=== PATIENT | male | born 1970 | race Caucasian/White ===

== ENCOUNTER 2017-01-25 02:44 | Observation (INO) | payer SELFPAY ==
[~2017-01-25] VITALS: Ht 172.7 cm; Wt 67.6 kg
--- NOTE | ~2017-01-25 | EC ---
PATIENT:SKYE WOODS DATE OF SERVICE: 01/25/17 SEX: M MEDICAL RECORD: [id number] DATE OF : 70 LOCATION:D. D.212 AGE OF PATIENT: 46 ADMISSION DATE: 01/25/17 REFERRING PHYSICIAN: INTERPRETING PHYSICIAN: MAYUR ANN MD ECHOCARDIOGRAM REPORT ECHO CHARGES 4 ECHO COMPLETE CLINICAL DIAGNOSIS: PALPITATIONS ECHOCARDIOGRAPHIC MEASUREMENTS (adult normal given) AC root (d.<3.7cm) 3.4 LV Septum d (<1.2 cm> 1.4 Valve Excursion 1.7 LV Septum (systole) 1.7 Left Atria (s.<4.0cm> 3.3 LVPW d(<1.2cm) 1.4 RV (d.<2.3cm) 4.5 LVPW (sytole) 1.7 LV diastole(<5.6CM) 4.8 MV E-F(>70mm/sec) LV systole 3.1 LVOT Diameter 1.7 MV exc.(>10mm) 2.7 Est.ejection fraction (50-75%) Pericardial Effusion N DOPPLER: LVIT A 55.0 E 89.0 LA RVSP 30 LVOT 95 AOP1/2T Asc. Ao 124 RVOT 57 RA PA 93 AV Gradient Peak 6.16 AV Mean 3.26 AV Area 1.9 MV Gradient Peak 3.17 MV Mean 0.86 MV Area COMMENTS: PA 93 CM/SEC OR 3.46 MMHG RVSP 30 MMHG Lime Spreader: 2 KRISTIE RIGGS Auditing Specialist:10 Dr. Goodman TAPE# PACS TWO-DIMENSIONAL ECHOCARDIOGRAM WITH DOPPLER 1. Left ventricular chamber size is within normal limits. Left ventricular systolic function is normal. Overall ejection fraction is estimated at 55 percent. 2. Left atrium, right atrium, and right ventricular chamber sizes are within normal limits. 3. Valvular structures have normal structure and motion. 4. Doppler interrogation reveals mild tricuspid regurgitation; no other valvular insufficiency or stenosis. 5. No evidence of pericardial effusion or left ventricular thrombus. ECHOCARDIOGRAM REPORT [id number] SKYE WOODS MAYUR ANN MD CC: [id number] DICTATION DATE: 01/25/17 1400 REDRAWER: DM 01/26/17 0819 DIS IN 01/25/17 [place] [id number] [facility] [place] [address]
[2017-01-25 03:34] LABS: BASOPHILS 0.2 % (0-2); EOSINOPHILS 1.8 % (0-7); HEMATOCRIT 44.6 % (42.0-54.0); HEMOGLOBIN 15.5 g/dL (13.5-17.5); IMMATURE GRANULOCYTES 0.1 % (0-5); LYMPHOCYTES 34.8 % (15-50); MCH 33.3 pg (26.0-34.0); MCHC 34.8 g/dL (31.0-37.0); MCV 95.9 fL (80.0-100.0); MEAN PLATELET VOLUME 9.8 fL (7.4-10.4); NEUTROPHILS 51.1 % (40-80); PLATELET COUNT 229 10x3/uL (130-400); RBC 4.65 10x6/uL (4.20-6.10); RDW 13.3 % (11.5-14.5); WBC 9.4 10x3/uL (4.8-10.8)
[2017-01-25 03:50] LABS: ALBUMIN 3.8 g/dL (3.4-5.0); ALKALINE PHOSPHATASE 75 U/L (46-116); ALT (SGPT) 23 U/L (10-68); BILIRUBIN - TOTAL 0.84 mg/dL (0.2-1.3); CALC OSMOLALITY 288 mosm/kg (275-300); CALCIUM 8.8 mg/dL (8.5-10.1); CARBON DIOXIDE 27.4 mmol/L (21.0-32.0); CHLORIDE - SERUM 110 mmol/L (98-107); GLUCOSE 100 mg/dL (74-106); POTASSIUM - SERUM 3.5 mmol/L (3.5-5.1); PROTEIN - SERUM 6.7 g/dL (6.4-8.2); SODIUM 143 mmol/L (136-145); UREA NITROGEN 24 mg/dL (7-18); eGFR NON AFRICAN AMERICAN 85 mL/min (90-120)
[2017-01-25 04:02] LABS: CKMB 4.5 U/L (0.0-3.6); CREATINE KINASE 739 UL (21-232)
[2017-01-25 04:03] LABS: TROPONIN-I < 0.017 ng/mL (0.000-0.060)
--- NOTE | 2017-01-25 05:36 | NUR ---
REPORT RECEIVED FROM RODOLFO PARNELL RN.
[2017-01-25 06:09] VITALS: BP 120/80; Ht 172.7 cm; Wt 67.6 kg
--- NOTE | 2017-01-25 07:20 | NUR ---
ASSESSMENT COMPLETED. TELEMERTY SHOWS SB AT 51. 02 AT 2 L/M PER NC. IV OF NS AT 100 CC HR. DENIES ANY PAIN OR OTHER NEEDS AT PRESENT TIME. AT BEDSIDE. SR UP WITH CALL LIGHT IN REACH.
[2017-01-25 08:00] VITALS: BP 104/71
[2017-01-25 08:31] LABS: CKMB 3.6 U/L (0.0-3.6); CREATINE KINASE 663 UL (21-232); TROPONIN-I < 0.017 ng/mL (0.000-0.060)
[2017-01-25 11:55] VITALS: BP 99/58
--- NOTE | 2017-01-25 15:23 | NUR ---
OK FROM CARDIOLOGY STAND POINT TO DISCHARGE PATIENT. FOLLOW UP APPOINTMENT MADE WITH DR. ANN AND DR. LANE.
--- NOTE | 2017-01-25 15:35 | NUR ---
PT DISCHARGED. IV DC'D WITH TIP INTACK. INSTRUCTIONS GIVEN TO PT. TO PRIVATE CAR PER WHEELCHAIR
--- NOTE | 2017-01-26 15:45 | CN ---
PATIENT NAME:SKYE WOODS MEDICAL RECORD: [id number] : 70 LOCATION:D.M2 D.2122 ADMIT DATE: 01/25/17 ACCOUNT: [id number] CONSULTING PHYSICIAN: DC JACKSON MD REFERRING PHYSICIAN: ARINA THORPE MD CARDIOLOGY CONSULT HISTORY OF PRESENT ILLNESS: This is a 46-year-old gentleman with no known history of coronary artery disease. Retrospectively, he has a history of what sounds like premature ventricular contractions. History of acute worsening yesterday after drinking an energy drink and working outside. He usually keeps up well with fluids although yesterday he had more caffeine, etc. Cardiac enzymes are negative. He does have an elevated BUN. We were asked to see him concerning cardiovascular status. PAST MEDICAL HISTORY: No significant past medical history. ALLERGIES: None known. CURRENT MEDICATIONS: None currently. SOCIAL HISTORY: He is an every day smoker. No set exercise program, but is active and . REVIEW OF SYSTEMS: Standard. PHYSICAL EXAMINATION: GENERAL: This is well-developed gentleman in no acute distress. VITAL SIGNS: Blood pressure 122/64. Pulse 68 and regular. HEAD, EYES, EARS, NOSE, AND THROAT: Normocephalic, atraumatic. NECK: No jugular venous distention or bruit. HEART: Regular. LUNGS: Good air excursion. ABDOMEN: Soft, nontender. PULSES: 2+ and equal, no edema. NEUROLOGIC: Grossly intact. ELECTROCARDIOGRAM: Without acute change. IMPRESSION AND PLAN: Suspect premature ventricular contractions secondary to intravascular volume depletion. I agree with hydration. We will check echocardiographic study to ensure structurally sound cardiovascular system. At this point discussed options. We will treat hi m with pill in a pocket therapy. Further recommendations based upon clinical course. DC JACKSON MD at 1545 CC: [id number] DICTATION DATE: 01/25/17 1400 MORGUE TECHNICIAN: BÁRBARA 01/26/17 0849 DIS IN 01/25/17 [facility] [address] [place] [address]
== END 2017-01-25 15:41 | disposition home or self-care (01) ==
LOC: D.ER 02:44 → OBSVTIME 05:25 → D.M2 05:25
PROVIDERS: Emergency Medicine; ADMIT Emergency Medicine
DX: I49.3 Ventricular premature depolarization (principal); E86.9 Volume depletion, unspecified; F17.203 Nicotine dependence unspecified, with withdrawal